=== PATIENT | male | born 1970 | race Caucasian/White ===

== ENCOUNTER 2022-04-16 17:13 | Emergency (ER) | payer OTHER ==
[2022-04-16] MEDS ORDERED: metroNIDAZOLE 250 MG Tab PO ONE (21:59)
[2022-04-16] MEDS ORDERED: Acetaminophen/oxyCODONE 325-10 MG Tab PO ONE (22:03)
== END 2022-04-16 22:20 | disposition home or self-care (01) ==
LOC: MW.ED 17:13
DX: K52.9 Noninfective gastroenteritis and colitis, unspecified (principal); I10 Essential (primary) hypertension; Z88.2 Allergy status to sulfonamides; Z88.8 Allergy status to other drugs, medicaments and biological substances; Z79.899 Other long term (current) drug therapy
CPT/HCPCS: 74176; 99284; A9270